=== PATIENT | male | born 1965 | race Caucasian/White ===

== ENCOUNTER 2016-04-11 15:05 | Inpatient (IN) | payer BC ==
--- NOTE | ~2016-04-11 | A ---
[facility] Nutrition Therapy DATE: 04/12/16 Patient: CARLITA GREY Physician: RADHA Address: [address] [place] [address] DRIVE Room/Bed: [address] [place] [address], Zip: [place] [address] Admit Date: 04/11/16 Date of : [birth year] Height: 5 11 Weight: 154 70 NUTRITIONAL ASSESSMENT: REASON: 5 NUTRITION RISK PT RE: WEIGHT LOSS, ALSO CONSULT RECEIVED PT IS 51 Y.O. MALE ADMITTED FOR PANCREATITIS PMH: DM (DIAGNOSED IN JAN 2016), ETOH ABUSE, RECENT SCROTAL ABSCESS Anthropometrics: 5'11", WT: 154# (70 KG), BMI: 21.5 Labs: A1c: 7.3, AMYLASE: 48, LIPASE: 81 Meds: NOVOLOG, PROTONIX, ZOFRAN, NACL I/O & Bowel function: 1820/5 Skin Integrity: NO KNOWN SKIN ISSUES Estimated Nutrition Needs: INCREASED NUTRIENT NEEDS 2' WEIGHT LOSS NOTED Assessment: CHART REVIEWED AND EVENTS NOTED. PT SEEN FOR WEIGHT LOSS. PT REPORTS DECREASED PO INTAKE 2' DECREASED APPETITE PAST FEW DAYS D/T N/V/ABD PAIN. PT REPORTS GOOD PO INTAKE AND APPETITE PRIOR TO A FEW DAYS AGO. PT REPORTS MAINTAINING WEIGHT OF ~155-160# SINCE JANUARY 2016 BUT LOST ~55# LAST 6-7 MONTHS PRIOR 2' DM DIAGNOSIS. PT REPORTS HAVING DIFFICULTY GAINING WEIGHT. THIS RD PROVIDED VERBAL CC DIET EDUCATION WELL WAYS TO GAIN WEIGHT (WHILE MANAGING DM). PT VERBALIZED UNDERSTANDING OF THE TOPIC. PT REPORTED NO DIET QUESTIONS AT THIS TIME. RD TO FOLLOW. SEE RECOMMENDATIONS BELOW. Dx: RECENT UNITENTIONAL WEIGHT LOSS R/T PMH AEB PT REPORT LOSING ~55# PAST 6-7 MONTHS BUT MAINTAINING WEIGHT SINCE JANUARY 2016. -ALTERED NUTRIENT NEEDS R/T DX, CURRENT CONDITION AEB NPO STATUS. Intervention: 1. NPO 2. RD CONSULT 3. RD PROVIDED EDUCATION Monitoring, Evaluation and Goals: 1. PO INTAKE; PROVIDE AND CONSUME ADEQUATE NUTRITION W/NO C/O N/V/D (PO>50%) 2. WEIGHTS; PREVENT FURTHER WEIGHT LOSS; MAINTAIN WEIGHT 3. LABS; WNL: GLU MONITOR: -DIET ADVANCEMENT -PO INTAKE/APPETITE [facility] Nutrition Therapy DATE: 04/12/16 Patient: CARLITA GREY Physician: RADHA Address: [address] [facility] Room/Bed: [address] [place] [address], Zip: [place] [address] Admit Date: 04/11/16 Date of : [birth year] Height: 5 11 Weight: 154 70 -WEIGHTS -EDUCATION NEEDS? Recommendations: 1. ONCE MEDICALLY FEASIBLE, ADVANCE DIET TOLERATED TO CC 2'PMH 2. IF PO INTAKE <50%, ORDER GLUCERNA SHAKES BID OR ENSURE CLEAR BID 3. ENCOURAGE ADEQUATE KCAL AND PROTEIN INTAKE 4. RE-CONSULT RD IF FURTHER DIET EDUCATION REQUESTED/NEEDED RD WILL F/U PER PROTOCOL PT IS MODERATELY COMPROMISED Respectfully, YOSSI FELIX MS, RD, LD [facility] cc: client file
--- NOTE | ~2016-04-11 | CO ---
Unit #: [id number] #: [id number] Patient: CARLITA MACIEL [id number] [address] [place], [place] [address] [id number] I MR#: [id number] NAME: CARLITA MACIEL ROOM: 217 Age: 51 Sex: M Admission Date: 04/11/2016 : 1965 Attending Physician: Edward Camargo M.D. Primary Care Physician: Ameena Dahl M.D. Consultation Date: 04/12/2016 CONSULTATION REPORT REASON FOR CONSULTATION Acute pancreatitis. HISTORY Mr. Maciel is a very pleasant 51-year-old white gentleman. The patient lives at home with his . He apparently was diagnosed with uncontrolled diabetes earlier this year and, as a result, lost about 50 pounds before presenting. He is currently on oral hypoglycemic agents, and his blood sugars have been well controlled. For the past 3 weeks he has been having pain in the epigastric area radiating to the back, especially in the scapular area, and is associated with nausea, anorexia and postprandial dyspeptic symptoms. There is also occasional retrosternal heartburn. His epigastric pain at times keeps him awake at nighttime. The patient came to the hospital and was found to have mildly elevated amylase and lipase and a CAT scan that showed a cystic area in relation to the pancreatic duct but no inflammatory changes of pancreatitis. He does not remember any recent weight loss other than the 50 pound weight loss that happened earlier this year. There is no history of overt GI bleed. He denies any history of fevers, chills or rigors. There is no history of any headache or systemic symptoms. PAST MEDICAL HISTORY Past medical history is significant for type 2 diabetes diagnosed recently. PAST SURGICAL HISTORY Previous surgeries included removal of a wisdom tooth, scrotal abscess drainage and tonsillectomy. MEDICATIONS Medications at home include metformin and glyburide. ALLERGIES He has no known drug allergies. SOCIAL HISTORY He is a nonsmoker. Does not use any alcohol. The patient was a heavy drinker until about a year or 2 ago. 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 FAMILY HISTORY None of colon or pancreas cancer or liver disease. REVIEW OF SYSTEMS A detailed review of organ systems reveals weight loss earlier this year Unit #: [id number] #: [id number] Patient: CARLITA MACIEL but not recently. No history of fevers, chills or rigors. No history of headache, seizures, chest pain or syncope. No history of cough, expectoration or hemoptysis. No history of dysuria, hematuria or polyuria. No history of focal seizures or extremity weakness. No history of skin rash, aphthous ulcers of the mouth or reactive arthritis. PHYSICAL EXAMINATION GENERAL: On examination, he is alert and oriented. Appears comfortable. VITAL SIGNS: His vital signs are stable with a temperature of 98.6, pulse 79 per minute and regular, respiratory rate 17, blood pressure 120/70. He weighs 154 pounds. His baseline weight in the past has been about 160 pounds. GENERAL: He has no pallor, icterus, lymphadenopathy or peripheral edema. CARDIOVASCULAR: Normal heart sounds. No murmurs on auscultation. RESPIRATORY: The lungs reveal normal breath sounds, good air entry. ABDOMEN: The abdomen is soft and nontender. The liver and spleen are not palpable. Bowel sounds are normal. DIAGNOSTIC STUDIES LABORATORY: Lab evaluation shows a normal CBC and normal metabolic profile except for an amylase and lipase of 48 and 167 with a repeat lipase of 181. Glycohemoglobin is 7.3. IMAGING: The patient's CT scan of the abdomen with contrast shows a cystic lesion with cystic dilation of the pancreatic duct in relation to pancreatic head/neck junction, about 1.7 to 1.8 cm in size. There are also some cystic areas in the spleen. CLINICAL IMPRESSION The most concerning thing here would be a pancreatic cystic neoplasm, and endoscopic ultrasound is a preferable modality of treatment, which will allow fine needle aspiration, as well as imaging. This will be done at [facility] after scheduling as an outpatient. An upper endoscopy is also warranted to look for any lesions in relation to (2) duodenal ulcer accounting for these symptoms and mild elevation of amylase and lipase. The above plan was discussed with the patient, and he was reassured. Thank you very much for asking me this pleasant gentleman. I appreciate the consult. Dictated by.Naina. Leelee Cooley TD: 04/13/2016 11:18 JOB #: [id number] Unit #: [id number] #: [id number] Patient: CARLITA MACIEL CONSULTATION REPORT X Lawson Tuttle MD X CONSULTATION REPORT
--- NOTE | ~2016-04-11 | CT2 ---
[facility] A Service of [facility] & [facility] RADIOLOGY TEXT RESULTS PATIENT: CARLITA GREY LOCATION: [facility] : [birth year] UNIT #: [id number] AGE: [address]: Edward Camargo MD SEX: M ORDER DR: [id number] [facility] [address]. [place], [place] [address] [id number] I MR#: [id number] Acc #: [id number] NAME: CARLITA GREY. : 1965 SEX: M STUDY DATE/TIME: 04/11/2016 16:45 UNIT: [facility] ROOM: [facility] STUDY DESCRIPTION: CT Abd and Pelv W Cont Attending Physician: Edward Camargo M.D. Referring Physician: Edward Camargo M.D. Ordering Physician: Roman Teran M.D. Primary Care Physician: Ameena Dahl M.D. MEDICAL IMAGING REPORT This report is preliminary unless electronic signature is present EXAM CT abdomen and pelvis with contrast dated 04/11/16 HISTORY 51-year-old male, abnormal laboratory results today. Pancreatitis. Elevated amylase, lipase levels. Diabetes. COMPARISON None. PROCEDURE This CT exam was performed with one or more of the following radiation dose reduction techniques: automatic exposure control, adjustment of mA and/or kV according to patient size, and iterative reconstruction. 5 mL axial images from the lung bases through lesser trochanters after intravenous and enteric contrast administration. Sagittal and coronal reformed images were obtained. FINDINGS A 1.7 x 1.7 cm cystic lesion is demonstrated within the pancreatic head - neck junction. It is unclear whether this represents a true parenchymal cystic lesion or cystic dilation pancreatic duct. Upstream to this, the pancreatic duct is dilated up to 8 mm, and there is atrophy of the mid pancreatic body and, to a lesser degree, pancreatic tail. Lung bases are clear. Heart size is normal. No focal liver lesions are identified. Several tiny low-density lesions are scattered throughout the splenic parenchyma, which are nonspecific. Findings could represent changes of granular disease, or even infectious etiology. Malignancy thought unlikely, given the lack of associated splenic enlargement or STS. [facility] A Service of [facility] RADIOLOGY TEXT RESULTS PATIENT: CARLITA GREY LOCATION: [facility] 217-01 : [birth year] UNIT #: [id number] AGE: [address]: Edward Camargo MD SEX: M ORDER DR: edema. The adrenals and right kidney are normal. There is marked parenchymal scarring or atrophy of the lateral left mid renal cortex. There is a moderate stool burden in the ascending colon. No evidence of high-grade bowel obstruction. No free air or fee fluid or pathologically enlarged lymph nodes. Normal appendix. Pelvis: Urinary bladder, prostate and rectum are normal. No pelvic adenopathy or free fluid. Lung bases are free of consolidation. No acute osseous abnormalities are identified. IMPRESSION 1. Cystic lesion or cystic dilation of the pancreatic duct in the pancreatic head-neck junction measuring 1.7 cm. Upstream pancreatic ductal dilation up to 1.8 cm. Consider ERCP for further evaluation, given the patient's reported clinically suspected pancreatitis. No active peripancreatic inflammatory changes are identified on this examination. 2. Multiple tiny ill-defined low-density lesions are scattered within nonenlarged spleen, favoring benign etiology such as infection (candidiasis can have this appearance), or granulomas disease. 3. Normal appendix. 4. Marked focal parenchymal atrophy or scarring in the left mid kidney. Dictated by... Paris Oropeza M.D. THIS IS AN ELECTRONICALLY VERIFIED REPORT Paris Oropeza M.D. at 04/12/2016 9:14 AM DANNIE/damaris TD: 04/11/2016 21:10 JOB #: [id number] MEDICAL IMAGING REPORT COPY
--- NOTE | ~2016-04-11 | OR ---
Unit #: [id number] #: [id number] Patient: CARLITA GREY [id number] [address] [place], [place] [address] [id number] I MR#: [id number] NAME: CARLITA GREY ROOM: [facility] Date of Procedure: 04/12/2016 Admission Date: 04/11/2016 Surgeon: Lawson Tuttle M.D. : 1965 Attending Physician: Edward Camargo M.D. Referring Physician: Edward Camargo M.D. Primary Care Physician: Ameena Dahl M.D. OPERATIVE REPORT PRIMARY CARE PHYSICIAN Ameena Dahl M.D. PREOPERATIVE DIAGNOSES Epigastric pain, retrosternal ascending heartburn, postprandial dyspepsia. The patient presented with clinical picture suggestive of mild pancreatitis with a CAT scan showing a cystic area in the junction of head and body of the pancreas. PROCEDURES PERFORMED Upper gastrointestinal endoscopy. POSTOPERATIVE DIAGNOSES Completely normal examination up to third part of duodenum. RECOMMENDATIONS 1. The patient will be scheduled to have an outpatient endoscopic ultrasound at [facility]. 2. The patient will be followed up in the office thereafter. We will also obtain CA-19-9 in the morning labs. SEDATION USED MAC. DESCRIPTION OF PROCEDURE Following detailed explanation of potential risks and complications of an upper endoscopy, namely perforation, bleeding, and complications related to sedation, the patient was brought to GI lab and laid in left lateral decubitus position. Lubricated tip of the Olympus video upper endoscope was passed through the bite block into the proximal esophagus under direct vision. The entire esophageal mucosa was examined and appeared normal. Z-line was nicely demarcated, there being no esophagitis or hiatus hernia. The scope was then advanced into the gastric cavity and the latter was insufflated. Mucosa of the fundus, body, and antrum was examined and appeared unremarkable. Pylorus was intubated with visualization of the normal duodenal bulb and second and third part of the duodenum. Upon withdrawal and retroflexion, incisura, cardia, and greater curve examined and no additional findings noted. The scope was withdrawn in the distal esophagus. The entire esophageal mucosa was examined all the way up to pharynx. No additional findings noted. The patient tolerated the procedure without any postprocedure complications. Unit #: [id number] #: [id number] Patient: CARLITA GREY Dictated by... Leelee Cooley/cora TD: 04/13/2016 03:13 JOB #: [id number] OPERATIVE REPORT X Lawson Tuttle MD PROCEDURE OPERATIVE NOTE
--- NOTE | ~2016-04-11 | DS ---
Unit #: [id number] #: [id number] Patient: CARLITA GREY [id number] [address] [place], [place] [address] [id number] I MR#: [id number] NAME: CARLITA GREY. ROOM: 217 Age: 51 Sex: M Admission Date: 04/11/2016 : 1965 Discharge Date: 04/13/2016 Attending Physician: Edward Camargo M.D. Referring Physician: Edward Camargo M.D. Primary Care Physician: Ameena Dahl M.D. DISCHARGE SUMMARY REASON FOR ADMISSION Pancreatitis/abnormal CT abdomen. HISTORY OF PRESENT ILLNESS The patient is a very pleasant 51-year-old male who presented after several day history of abdominal pain, nausea, vomiting. Please see H and P for details. He had undergone a CT abdomen and pelvis with contrast performed in the emergency room on 04/11/2016. It did reveal a cystic lesion or cystic dilatation of the pancreatic duct in the pancreatic head/neck junction measuring 1.7 cm. ERCP was recommended and, thus, patient was admitted for the same evaluation. Initial laboratory studies also yielded an elevated lipase. However, CT abdomen and pelvis did not correlate with inflammatory changes. In regards to his elevated lipase, he was treated as though he had acute pancreatitis with IV fluids, Protonix as well as Zosyn IV. This was gradually discontinued as medications were converted to p.o. He was transitioned to a regular diet and he was able to tolerate that well without difficulty. In regards to the cystic lesion as well as abnormal pancreatic duct dilatation, the patient underwent upper GI endoscopy per Dr. Tuttle. Please see his note for complete details. It is recommended by his service that he have an outpatient endoscopic ultrasound. This would be set up by his service at a later point in time. At the present time, he is completely asymptomatic. I will revert back to his home medications and add Zofran on a p.r.n. basis. He will follow up with Dr. Tuttle of gastroenterology services in two weeks for outpatient endoscopic ultrasound evaluation of aforementioned pancreatic abnormality seen on CT scan. FINAL DISCHARGE DIAGNOSES 1. Abnormal pancreatic lesion see on CT abdomen/pelvis. 2. Acute pancreatitis by laboratory studies. 3. Abdominal pain, nausea, vomiting. 4. Diabetes type 2. DISCHARGE MEDICATIONS 1. Zofran 4 mg p.o. q.6 p.r.n. Unit #: [id number] #: [id number] Patient: CARLITA GREY 2. Glucophage 500 mg p.o. b.i.d. 3. Prilosec 20 mg p.o. daily. 4. Glyburide 2.5 mg p.o. daily with dinner. DISCHARGE CONDITION Stable. DISCHARGE DISPOSITION Home. Dictated by... Leelee Heck/amari TD: 04/16/2016 09:04 JOB #: [id number] DISCHARGE SUMMARY X Edward Camargo MD X DISCHARGE SUMMARY
--- NOTE | ~2016-04-11 | HP ---
Unit #: [id number] #: [id number] Patient: CARLITA GREY [id number] [address] [place], [place] [address] [id number] I MR#: [id number] NAME: CARLITA GREY. ROOM: 217 Age: 51 Sex: M Admission Date: 04/11/2016 : 1965 Attending Physician: Edward Camargo M.D. Referring Physician: Edward Camargo M.D. Primary Care Physician: Ameena Dahl M.D. HISTORY AND PHYSICAL REASON FOR ADMISSION Pancreatitis/abnormal CT scan, ERCP recommended. HISTORY OF PRESENT ILLNESS The patient is a very pleasant 51-year-old male with a prior history of diabetes type 2 and recent hospital admission in January 2016 secondary to left scrotal abscess who was admitted to our particular institution at that time, who presented after he developed some nausea as well as mild abdominal pain. He apparently had gone to see his primary care physician several days prior, underwent some routine laboratory studies, was then told by his primary care physician that there were some abnormal labs including elevated amylase and lipase and was instructed to the ER for further evaluation. While he was evaluated here, amylase was 48 and lipase was 167. CBC and other chemistries were relatively unremarkable. He underwent a CT abdomen and pelvis which did reveal pancreatic duct dilatation and ERCP was recommended. Although I do not have the official CT report, this was initial wet read that was provided to me. At the present time, he is currently sitting comfortably. His is present at bedside. PAST MEDICAL HISTORY 1. Type 2 diabetes. 2. History of tonsillectomy. 3. Recent scrotal abscess surgery. 4. [place] teeth removal. CURRENT HOME MEDICATIONS 1. Metformin. 2. Glyburide. ALLERGIES No known drug allergies. SOCIAL HISTORY Nonsmoker, no alcohol use, no drug use. 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 FAMILY HISTORY Reviewed, noncontributory, not pertinent. REVIEW OF SYSTEMS Please see HPI. Twelve points otherwise negative except for those positives noted in the HPI. Unit #: [id number] #: [id number] Patient: CARLITA GREY PHYSICAL EXAMINATION VITAL SIGNS: Temperature 98.2, pulse 71, respiratory rate 16, blood pressure 128/70. GENERAL: The patient is a 51-year-old male lying comfortably in no acute distress. HEAD: Atraumatic, normocephalic. EARS: Tympanic membranes do not reveal any erythema or injection. NECK: Supple. No JVD, no carotid bruits. HEART: S1, S2 without murmur. LUNGS: Clear. ABDOMEN: Mild distention noted with epigastric tenderness which is noted but no rebound, no guarding. LOWER EXTREMITIES: No evidence of any lower extremity edema or calf tenderness. NEUROLOGIC: Alert and oriented x3. No evidence of any focal neurologic deficits. DIAGNOSTIC STUDIES LABORATORY: Include the aforementioned elevated lipase. IMAGING: Reveal the aforementioned CT scan. Official report currently pending but findings concerning for pancreatic duct dilatation. INITIAL ADMISSION DIAGNOSIS 1. Abnormal CT abdomen and pelvis with pancreatic duct dilatation. 2. Acute pancreatitis. 3. Diabetes type 2. 4. Abdominal pain with mild nausea and vomiting. PLAN 1. Admission. 2. Clear liquid diet, n.p.o. after midnight. 3. Gastroenterology consultation. 4. Symptom management for pain control as well as for nausea. 5. Routine laboratory studies. 6. Plans were reviewed with patient in detail and he expressed understanding and agreement. Consideration for possible discharge within 24-48 hours pending ERCP in the a.m. as well as gastroenterology consultation. All plans were reviewed with patient as well as his present at bedside. 7. FULL CODE. Dictated by Leelee Heck/yessenia TD: 04/11/2016 21:42 JOB #: [id number] Unit #: [id number] #: [id number] Patient: CARLITA GREY HISTORY AND PHYSICAL X Edward Camargo MD HISTORY AND PHYSICAL
[~2016-04-11 15:05] MED LIST: BACTRIM 400-801 TA1 PO; GLYBURIDE2.5 MG PO; METFORMIN HCL1000 M1 PO; NO MEDICATIONS
[2016-04-11 15:13] LABS: BASOPHIL% 0.6 % (0-2.5); EOSINOPHIL# 0.1 X10e3 (0-0.7); EOSINOPHIL% 1.9 % (0.0-7.0); HEMATOCRIT 40.7 % (38.0-50.0); HEMOGLOBIN 13.9 gm/dL (13.0-16.0); LYMPHOCYTE% 13.6 % (17.0-45.0); MEAN CORPUSCULAR HEMOGLOBIN 30.1 PG (28-34); MEAN CORPUSCULAR HGB CONC 34.2 g/dL (30-36); MEAN PLATELET VOLUME 7.7 FL (6.5-11.5); MONOCYTE# 0.5 X10e3 (0-1.0); MONOCYTE% 7.2 % (3.0-12.0); NEUTROPHIL# 5.5 X10e3 (1.5-7.1); NEUTROPHIL% 76.7 % (40-75); PLATELET COUNT 242 X10e3 (140-420); RED BLOOD COUNT 4.62 X10e (3.90-5.60); RED CELL DISTRIBUTION WIDTH 12.8 % (11.0-15.5); WHITE BLOOD COUNT 7.1 X10e3 (4.0-10.5)
[2016-04-11 15:19] LABS: DIFF IND NO
[2016-04-11 15:51] LABS: ALBUMIN SERUM 4.5 g/dL (3.5-5.0); ALKALINE PHOSPHATASE 59 U/L (32-92); ALT (SGPT) 15 U/L (10-40); AMYLASE 48 U/L (0-46); AST (SGOT) 18 U/L (10-42); BILIRUBIN, DIRECT 0.2 mg/dL (0.0-0.2); BILIRUBIN,INDIRECT 0.9 mg/dL (0.0-0.9); BILIRUBIN,TOTAL 1.1 mg/dL (0.2-2.0); BLOOD UREA NITROGEN 15 mg/dL (9-23); CALCIUM SERUM 9.5 mg/dL (8.4-10.2); CARBON DIOXIDE 29 mmol/L (22-31); CHLORIDE 100 mmol/L (100-111); GLOM FILT RATE Estimated ABOVE60 mL/min (>60); GLUCOSE FASTING 113 mg/dL (70-110); LIPASE 167 U/L (22-51); POTASSIUM 3.9 mmol/L (3.5-5.1); PROTEIN TOTAL SERUM 7.6 g/dL (6.0-8.3); SODIUM 138 mmol/L (135-145)
[2016-04-11] MEDS ORDERED: GLYBURIDE2.5 M1 PO (19:22)
[2016-04-11] MEDS ORDERED: GLUCOPHAGE500 MG PO (19:23)
[2016-04-11] MEDS ORDERED: PRILOSEC PO (19:24)
[2016-04-12 05:17] LABS: BASOPHIL% 0.7 % (0-2.5); EOSINOPHIL# 0.2 X10e3 (0-0.7); EOSINOPHIL% 3.5 % (0.0-7.0); HEMATOCRIT 38.9 % (38.0-50.0); LYMPHOCYTE% 19.1 % (17.0-45.0); MEAN CELL VOLUME 88.7 FL (83-96); MEAN CORPUSCULAR HEMOGLOBIN 29.6 PG (28-34); MEAN CORPUSCULAR HGB CONC 33.4 g/dL (30-36); MEAN PLATELET VOLUME 7.7 FL (6.5-11.5); MONOCYTE# 0.5 X10e3 (0-1.0); NEUTROPHIL# 3.6 X10e3 (1.5-7.1); NEUTROPHIL% 67.7 % (40-75); PLATELET COUNT 195 X10e3 (140-420); RED BLOOD COUNT 4.38 X10e (3.90-5.60); RED CELL DISTRIBUTION WIDTH 13.2 % (11.0-15.5); WHITE BLOOD COUNT 5.3 X10e3 (4.0-10.5)
[2016-04-12 05:24] LABS: DIFF IND NO
[2016-04-12 06:04] LABS: ALBUMIN SERUM 3.8 g/dL (3.5-5.0); ALKALINE PHOSPHATASE 49 U/L (32-92); ALT (SGPT) 14 U/L (10-40); AST (SGOT) 15 U/L (10-42); BILIRUBIN,TOTAL 1.1 mg/dL (0.2-2.0); BLOOD UREA NITROGEN 11 mg/dL (9-23); BUN/CREATININE RATIO 13.75; CALCIUM SERUM 8.8 mg/dL (8.4-10.2); CARBON DIOXIDE 28 mmol/L (22-31); CHLORIDE 104 mmol/L (100-111); CREATININE SERUM 0.8 mg/dL (0.6-1.4); GLOM FILT RATE Estimated ABOVE60 mL/min (>60); GLUCOSE FASTING 84 mg/dL (70-110); LIPASE 81 U/L (22-51); POTASSIUM 4.1 mmol/L (3.5-5.1); PROTEIN TOTAL SERUM 6.3 g/dL (6.0-8.3); SODIUM 138 mmol/L (135-145)
[2016-04-13 04:46] LABS: HEMATOCRIT 39.9 % (38.0-50.0); HEMOGLOBIN 13.4 gm/dL (13.0-16.0); MEAN CELL VOLUME 88.8 FL (83-96); MEAN CORPUSCULAR HEMOGLOBIN 29.9 PG (28-34); MEAN CORPUSCULAR HGB CONC 33.6 g/dL (30-36); MEAN PLATELET VOLUME 7.7 FL (6.5-11.5); RED BLOOD COUNT 4.5 X10e (3.90-5.60); RED CELL DISTRIBUTION WIDTH 12.9 % (11.0-15.5); WHITE BLOOD COUNT 5.8 X10e3 (4.0-10.5)
[2016-04-13 07:04] LABS: ALBUMIN SERUM 3.9 g/dL (3.5-5.0); ALKALINE PHOSPHATASE 51 U/L (32-92); ALT (SGPT) 13 U/L (10-40); AMYLASE 42 U/L (0-46); AST (SGOT) 17 U/L (10-42); BILIRUBIN,TOTAL 0.6 mg/dL (0.2-2.0); BLOOD UREA NITROGEN 9 mg/dL (9-23); CALCIUM SERUM 9.1 mg/dL (8.4-10.2); CARBON DIOXIDE 26 mmol/L (22-31); CHLORIDE 106 mmol/L (100-111); CREATININE SERUM 0.9 mg/dL (0.6-1.4); GLOM FILT RATE Estimated ABOVE60 mL/min (>60); GLUCOSE FASTING 103 mg/dL (70-110); LIPASE 125 U/L (22-51); PROTEIN TOTAL SERUM 6.6 g/dL (6.0-8.3); SODIUM 140 mmol/L (135-145)
[2016-04-13] MEDS ORDERED: ACETAMINOPHEN325 MG PO (09:11)
[2016-04-13] MEDS ORDERED: NORCO 5/325 PO (09:13)
[2016-04-13] MEDS ORDERED: ZOFRAN PO (09:14)
== END 2016-04-13 12:41 | disposition home or self-care (01) | DRG 439 ==
LOC: CED 15:05 → C2A 17:45
PROVIDERS: Emergency Medicine; Family Medicine; Internal Medicine Gastroenterology
PROC: 0DJ08ZZ Inspection of Upper Intestinal Tract, Via Natural or Artificial Opening Endoscopic (ICD-10-PCS; principal; 2016-04-12 17:04)
DX: K85.90 Acute pancreatitis without necrosis or infection, unspecified (principal); K86.2 Cyst of pancreas; E11.9 Type 2 diabetes mellitus without complications; Z79.84 Long term (current) use of oral hypoglycemic drugs; R11.2 Nausea with vomiting, unspecified; M19.90 Unspecified osteoarthritis, unspecified site
CPT/HCPCS: 36415; 74177; 80048; 80053; 80076; 82150; 82947; 83036; 83690; 85025; 85027; 86301; 94760; 96361; 96374; 96375; 99285; C9113; J1815; J2060; J2250; J2270; J2405; J2543; Q9967

== ENCOUNTER → 2016-04-30 | Outpatient (CLI) | payer BC ==
[~2016-04-30] MED LIST changes: +ACETAMINOPHEN325 MG PO; +GLUCOPHAGE500 MG PO; +GLYBURIDE2.5 M1 PO; +NORCO 5/325 PO; +PRILOSEC PO; +ZOFRAN PO
--- NOTE | ~2016-04-30 | US6 ---
[facility] A Service of [facility] RADIOLOGY TEXT RESULTS PATIENT: CARLITA GREY LOCATION: [facility] : 61 UNIT #: [id number] AGE: [address]: Ameena Dahl MD SEX: M ORDER DR: [id number] [facility] [address] [place], [place] [address] [id number] MR#: [id number] Acc #: [id number] NAME: CARLITA GREY. : 1965 SEX: M STUDY DATE/TIME: 04/30/2016 7:26 UNIT: [facility] ROOM: STUDY DESCRIPTION: US Abdominal Limited Attending Physician: Ameena Dahl M.D. Referring Physician: Ameena Dahl M.D. Ordering Physician: Ameena Dahl M.D. Primary Care Physician: Ameena Dahl M.D. MEDICAL IMAGING REPORT This report is preliminary unless electronic signature is present EXAM Right upper quadrant ultrasound HISTORY Abdominal pain for 1 month. Patient had a CT performed April 11, 2016 which showed dilatation of the pancreatic duct as well as a potential area of cystic dilatation of the distal pancreatic duct. TECHNIQUE Kapoor-scale and color Doppler sonographic images were obtained through the right upper quadrant. FINDINGS The patient's liver is enlarged measuring up to about 17 cm in craniocaudal dimension. There is no intrahepatic biliary dilatation, although there does appear to be dilatation of the common bile duct measuring up to 9 mm. Main portal vein is patent with hepatopetal flow. Gallbladder appears unremarkable, no stones or sludge are seen and there is no gallbladder wall thickening or pericholecystic fluid. Right kidney is normal in appearance, no solid or cystic renal masses are seen and there is no hydronephrosis. As was identified on the prior CT, this patient has a cystic area seen within the pancreatic head. I do not see any internal color Doppler flow within it. It measures 2.5 x 2.5 x 2.6 cm on the current exam. IMPRESSION 1. Hepatomegaly. 2. Dilatation of the common bile duct measuring up to about 9 mm in size. As was discussed on the prior CT from April 11, 2016, there is a cystic area involving the distal pancreatic duct. On today's study, it measures 2.5 x 2.5 x 2.6 cm, which is larger than on the prior examination. It is simple in appearance but given the presence [facility]. [facility] A Service of [facility] RADIOLOGY TEXT RESULTS PATIENT: CARLITA GREY LOCATION: [facility] : 61 UNIT #: [id number] AGE: [address]: Ameena Dahl MD SEX: M ORDER DR: of dilatation of the patient's pancreatic duct on the prior examination as well as the presence of some common bile duct dilatation, I would suggest further evaluation with ERCP. Multiphase pancreas protocol CT or MRI also may be complementary. Dictated by... Ameena Bunn M.D. THIS IS AN ELECTRONICALLY VERIFIED REPORT Ameena Bunn M.D. at 05/01/2016 4:30 PM AFF/psc TD: 04/30/2016 23:36 JOB #: [id number] MEDICAL IMAGING REPORT Page 1 of 1 COPY
== END | disposition home or self-care (01) ==
LOC: CGUS 06:55
DX: K85.90 Acute pancreatitis without necrosis or infection, unspecified (principal); R16.0 Hepatomegaly, not elsewhere classified
CPT/HCPCS: 76705

== ENCOUNTER 2016-07-17 12:17 | Emergency (ER) | payer BC ==
--- NOTE | ~2016-07-17 | CT2 ---
[facility] A Service of [facility] RADIOLOGY TEXT RESULTS PATIENT: CARLITA GREY LOCATION: [facility] : 61 UNIT #: [id number] AGE: [address]: Godwin Espinoza MD SEX: M ORDER DR: [id number] [facility] [address] [place], [place] [address] [id number] E MR#: [id number] #: [id number] NAME: CARLITA GREY. : 1965 SEX: M STUDY DATE/TIME: 07/17/2016 14:30 UNIT: [facility] ROOM: STUDY DESCRIPTION: CT Abd and Pelv W Cont Attending Physician: Godwin Espinoza M.D. Ordering Physician: Roman Teran M.D. Primary Care Physician: Ameena Dahl M.D. MEDICAL IMAGING REPORT This report is preliminary unless electronic signature is present EXAM CT abdomen and pelvis with oral and IV contrast, 07/17/16. PROCEDURE Axial CT abdomen and pelvis with oral and IV contrast with multiplanar reformats. This CT exam was performed with one or more of the following radiation dose reduction techniques: automatic exposure control, adjustment of mA and/or kV according to patient size, and iterative reconstruction. COMPARISON Prior CT abdomen and pelvis dated 04/11/16. CLINICAL HISTORY Nausea and vomiting since ERCP approximately 5 days ago. Pain is reported as right-sided, radiating to mid abdomen with nausea and vomiting. FINDINGS The lung bases are normal. ABDOMEN: The liver is normal. There is a common bile duct stent in place and the gallbladder remains. A few tiny scattered low-density lesions in the spleen and these are unchanged since the prior CT. The pancreas shows chronic atrophy and ductal dilatation. There is a cyst in the pancreatic head/uncinate process. This previously measured 1.7 x 1.7 x 1.5 cm, and now measures 3.1 x 3.1 x 2.9 cm. There are mildly prominent nodes in or adjacent to the lashanda hepatis/celiac access, though those are unchanged since the prior CT. There is no intrahepatic biliary ductal dilatation. The aorta is normal in caliber. The right kidney and both adrenal glands are normal and there is left renal atrophy/scarring, unchanged since the prior study, but there is no hydronephrosis on either side. [facility] A Service of [facility] RADIOLOGY TEXT RESULTS PATIENT: CARLITA GREY [id number] 61 UNIT #: [id number] AGE: [address]: Godwin Espinoza MD SEX: M ORDER DR: There is no bowel obstruction or intraabdominal mass or inflammatory change or abnormal fluid collection. PELVIS: There is no pelvic mass or inflammatory change or abnormal fluid collection, hernia or bowel obstruction. There is minimal sigmoid diverticulosis, but no CT evidence of diverticulitis. The appendix is normal. IMPRESSION 1. No renal, biliary or bowel obstruction. There is a biliary duct stent in place, new since the prior study, but there is no intra or extrahepatic biliary ductal dilatation. 2. 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 A cystic lesion in the pancreatic head and/or uncinate process has increased in size, previously 1.7 x 1.7 x 1.5 cm, now 3.1 x 3.1 x 2.9 cm, though it appears to represent an otherwise simple-appearing cyst. Small upper abdominal/retroperitoneal celiac lymph nodes are stable since the prior study. No definite acute abnormality is seen. 3. Chronic changes in the left kidney are stable. Dictated by... David Bowles M.D. THIS IS AN ELECTRONICALLY VERIFIED REPORT David Bowles M.D. at 07/19/2016 2:18 PM VINCE/chandrakant TD: 07/17/2016 17:29 JOB #: [id number] MEDICAL IMAGING REPORT Page 1 of 1 COPY
[2016-07-17 13:07] LABS: BASOPHIL% 0.5 % (0-2.5); EOSINOPHIL# 0.2 X10e3 (0-0.7); EOSINOPHIL% 2.3 % (0.0-7.0); HEMATOCRIT 41.6 % (38.0-50.0); HEMOGLOBIN 14.2 gm/dL (13.0-16.0); LYMPHOCYTE# 0.7 X10e3 (1.0-3.5); LYMPHOCYTE% 8.2 % (17.0-45.0); MEAN CELL VOLUME 88.5 FL (83-96); MEAN CORPUSCULAR HEMOGLOBIN 30.2 PG (28-34); MEAN CORPUSCULAR HGB CONC 34.1 g/dL (30-36); MEAN PLATELET VOLUME 7.3 FL (6.5-11.5); MONOCYTE# 0.5 X10e3 (0-1.0); MONOCYTE% 5.7 % (3.0-12.0); NEUTROPHIL# 6.8 X10e3 (1.5-7.1); NEUTROPHIL% 83.3 % (40-75); PLATELET COUNT 238 X10e3 (140-420); RED CELL DISTRIBUTION WIDTH 13.2 % (11.0-15.5); WHITE BLOOD COUNT 8.2 X10e3 (4.0-10.5)
[2016-07-17 13:19] LABS: DIFF IND NO
[2016-07-17 13:55] LABS: ALBUMIN SERUM 4.6 g/dL (3.5-5.0); BILIRUBIN, DIRECT 0.1 mg/dL (0.0-0.2); BILIRUBIN,INDIRECT 0.8 mg/dL (0.0-0.9); BILIRUBIN,TOTAL 0.9 mg/dL (0.2-2.0); CALCIUM SERUM 9.7 mg/dL (8.4-10.2); GLOM FILT RATE Estimated 85.6 mL/min (>60); POTASSIUM 3.9 mmol/L (3.5-5.1); PROTEIN TOTAL SERUM 7.9 g/dL (6.0-8.3)
[2016-07-17 14:41] LABS: URINE SOURCE CLEAN CATCH
[2016-07-17 14:47] LABS: URINE APPEARANCE CLEAR; URINE BILIRUBIN NEG (NEG); URINE BLOOD NEG (NEG); URINE COLOR YELLOW; URINE GLUCOSE NEG (NEG); URINE KETONE NEG (NEG); URINE LEUKOCYTE ESTERASE NEG (NEG); URINE NITRATE NEG (NEG); URINE PH 5.5 (5-8); URINE PROTEIN NEG (NEG); URINE SPECIFIC GRAVITY 1.005 (1.003-1.035); URINE UROBILINOGEN 0.2 MG/DL (NEG)
[2016-07-17 14:55] LABS: CULTURE INDICATED? NO
== END 2016-07-17 16:00 | disposition home or self-care (01) ==
LOC: CED 12:17
PROVIDERS: Emergency Medicine
DX: R10.84 Generalized abdominal pain (principal); R11.2 Nausea with vomiting, unspecified; E11.9 Type 2 diabetes mellitus without complications; Z79.899 Other long term (current) drug therapy
CPT/HCPCS: 36415; 74177; 80048; 80076; 81003; 82150; 83690; 85025; 96361; 96374; 96375; 99284; J2270; J2405; Q9967